=== PATIENT | male | born 1985 | race Caucasian/White ===

== ENCOUNTER 2016-11-27 11:15 | Emergency (ER) | payer BC ==
[2016-11-27 11:16] VITALS: BMI 28.8
[2016-11-27 11:28] VITALS: BP 147/71; PULSE 82; TEMP 98.6
[2016-11-27] MEDS ORDERED: Lidocaine 2%-Epinephrine 1:100,000 20ml vial INF ONE (11:32)
--- NOTE | 2016-11-27 11:32 | EDPRACDOC ---
- General Information Chief Complaint: Wound Stated Complaint: ABSCESS LT KNEE Time Seen by Provider: 11/27/16 11:28 Mode of Arrival:: Car Home Medications: Home Medications Hydrocodone Bit/Acetaminophen [Hydrocodon-Acetaminophen 5-325] 1 tab PO Q6 PRN # 15 tab 11/27/16 Sulfamethoxazole/Trimethoprim [Bactrim Ds Tablet] 1 tab PO BID #20 tab 11/27/16 Allergies/Adverse Reactions: Allergies Allergy/AdvReac Type Severity Reaction Status Date / Time No Known Allergies Allergy Verified 11/27/16 11:35 - History of Present Illness Onset: 2 days HPI: PT REPORTS PAINFUL, SWOLLEN RED AREA TO LEFT KNEE X 2-3 DAYS, NAUSEA, NO FEVER OR CHILLS, NO DRAINAGE, STATES NOTICED "RED STREAK" UP HIS LEG THIS MORNING. Location: Reports: Extremity Relevent History Of: Reports: None Prior Abscess: Reports: None Pain: Reports: Severe Quality: Reports: Painful, Red. Denies: Draining Associated Signs & Symptoms: Reports: Proximal Streaking. Denies: Chills, Fever ED Past Medical History - History Reviewed Yes Nurses notes reviewed and agree except as marked No Past Medical History: Yes Patient has no past medical history - Patient Medical History Neurological History: Denies: Seizures Cardiac History: Denies: Hypertension Respiratory History: Denies: Asthma, COPD GI/ History: Denies: Gastroesophageal Reflux, Ulcer Musculoskeletal History: Denies: Arthritis Surgical History: Reports: Cholecystectomy - Social Medical History Smoking Status: Heavy tobacco smoker (5 or more cigarettes/day or daily pipe/ cigar) EDM Review of Systems - Review of Systems Constitutional: negative: Chills, Fever Gastrointestinal: Nausea. negative: Diarrhea, Pain, Vomiting Musculoskeletal: No Symptoms Reported Integumentary: Wound - Physical Exam Constitutional: Alert (Awake), No apparent distress Oriented to: Time, Person, Place Last recorded Vital Signs: Last Vital Signs Temp 98.6 F 11/27/16 11:25 Pulse 82 11/27/16 11:25 Resp 18 11/27/16 11:25 BP 147/71 11/27/16 11:25 Pulse Ox 97 11/27/16 11:25 Oxygen Pulse Oxygen Saturation 97 O2 Device Room Air Oxygen Flow Rate Fraction of Inspired Oxygen ( FIO2) - HEENT Head: Normal ( normocephalic) - Neurologic Memory Impaired: Normal Motor Function: Normal (Normal tone, Pulses 2+ No cyanosis or edema, FROM) Cranial Nerve: Normal (CN II-X11 intact sensation, strength 5/5) Cerebellar: Normal Mood Description: Normal Perception: Normal ED Abscess/Mass Exam - Integumentary Skin: Warm Mass: Size (2 CM), Red, Tender, Warm, Firm, Pustule, Local Cellulitis Lymphatics: Normal ED Procedures - Incision and Drainage Informed of risks, benefits and alternatives described.: Yes Informed Consent Signed: Verbal Site: LEFT DISTAL THIGH Indication: Painful Mass Anesthetic: Lidocaine, with Epi Prep: Betadine Blade Size: 11 Incised Site drained: Reports: Blood, Pus Incised site was: Irrigated, Not Packed with Iodoform - Differential Diagnosis Abscess, Cellulitis Decision Time to Discharge: 11:46 - Departure Disposition: Home Condition: Stable Final Diagnosis: Abscess of left thigh Instructions: MRSA (Methicillin Resistant Staphylococcus Aureus) (ED) Education/Counseling Given To: Patient Education/Counseling Given Regarding: Diagnosis, Treatment, Prognosis, Follow Up Referrals: Patt Zhu MD [Primary Care Provider] - One Week Prescriptions: Hydrocodone Bit/Acetaminophen [Hydrocodon-Acetaminophen 5-325] 1 tab PO Q6 PRN # 15 tab PRN Reason: Pain Sulfamethoxazole/Trimethoprim [Bactrim Ds Tablet] 1 tab PO BID #20 tab Additional Instructions: Keep wound clean and dry, apply warm compresses to affected area 20 mins at a time 4 - 5 times daily, return to the ED for any worsening symptoms or concerns.
[2016-11-27] MEDS ORDERED: TRIMETHOPRIM-SULFAMETHOXAZOLE TAB PO ONE (11:33)
== END 2016-11-27 11:59 | disposition home or self-care (01) ==
LOC: ED 11:15 → EDMC 11:59
DX: L02.416 Cutaneous abscess of left lower limb (principal)
CPT/HCPCS: 10060; 99282; J3490

== ENCOUNTER 2016-11-29 10:23 | Emergency (ER) | payer BC ==
[2016-11-29 10:37] VITALS: BMI 29.7
[2016-11-29 12:29] LABS: AUTOMATED BASOPHIL 0.8 % (0-2); AUTOMATED EOSINOPHIL 1.2 % (0-5); AUTOMATED LYMPH 23.2 % (17-44); AUTOMATED MONOCYTE 5.8 % (3-10)
[2016-11-29 12:45] LABS: BLOOD UREA NITROGEN 9 MG/DL (9-20); CALC CORRECTED 9.5 MG/DL (8.4-10.2); CALCULATED OSMOLALITY 268 MOs/Kg (270-290); CHLORIDE 106 mEq/L (98-107); GLUCOSE 93 MG/DL (70-99); SODIUM LEVEL 140 mEq/L (137-146); TOTAL PROTEIN 6.1 G/DL (6.3-8.2)
--- NOTE | 2016-11-29 12:45 | EDPRACDOC ---
- General Information Chief Complaint: Wound Stated Complaint: LEFT LEG INFECTION Time Seen by Provider: 11/29/16 11:45 Information Source: Patient Mode of Arrival:: Car Home Medications: Home Medications Hydrocodone Bit/Acetaminophen [Hydrocodon-Acetaminophen 5-325] 1 tab PO Q6 PRN # 15 tab 11/27/16 Sulfamethoxazole/Trimethoprim [Bactrim Ds Tablet] 1 tab PO BID #20 tab 11/27/16 Allergies/Adverse Reactions: Allergies Allergy/AdvReac Type Severity Reaction Status Date / Time No Known Allergies Allergy Verified 11/29/16 10:37 - History of Present Illness Onset: SUN HPI: PT PRESENTS TODAY WITH SWELLING/ERYTHEMA TO LEFT LEG X 2 DAYS. PT WAS SEEN HERE 2 DAYS AGO FOR ABSCESS TO LEFT ANTERIOR THIGH. STATES WOUND WAS DRAINED AND PT SENT HOME WITH ANTIBIOTICS. HAS BEEN COMPLIANT WITH THESE MEDICATIONS, BUT HIS LEG HAS BECOME INCREASINGLY MORE SWOLLEN/RED. DENIES FEVER. MODERATE PAIN. NO OTHER S/S REPORTED. Location: Reports: Extremity Relevent History Of: Reports: None Prior Abscess: Reports: Same Pain: Reports: Moderate Quality: Reports: Draining, Painful, Red Associated Signs & Symptoms: Reports: Proximal Streaking ED Past Medical History - History Reviewed Yes Nurses notes reviewed and agree except as marked - Patient Medical History Neurological History: Denies: Seizures Cardiac History: Denies: Hypertension Respiratory History: Denies: Asthma, COPD GI/ History: Denies: Gastroesophageal Reflux, Ulcer Musculoskeletal History: Denies: Arthritis Psychological History: Denies: Depression Surgical History: Reports: Cholecystectomy - Social Medical History Smoking Status: Heavy tobacco smoker (5 or more cigarettes/day or daily pipe/ cigar) EDM Review of Systems - Review of Systems ROS Negative Except as Marked: Yes All systems reviewed and were negative except as marked Constitutional: No Symptoms Reported Respiratory: No Symptoms Reported Cardiovascular: No Symptoms Reported Gastrointestinal: No Symptoms Reported Neurological: No Symptoms Reported Musculoskeletal: Leg Integumentary: Wound - Physical Exam Constitutional: Alert (Awake), No apparent distress Oriented to: Time, Person, Place Last recorded Vital Signs: Last Vital Signs Temp 98.3 F 11/29/16 10:33 Pulse 78 11/29/16 12:08 Resp 18 11/29/16 12:08 BP 124/74 11/29/16 12:08 Pulse Ox 95 11/29/16 12:08 Oxygen Pulse Oxygen Saturation 95 O2 Device Room Air Oxygen Flow Rate Fraction of Inspired Oxygen ( FIO2) - HEENT Head: Normal Eye Exam: Normal Neck: Normal, Denies Pain, Midline - Respiratory/Cardiovascular Respiratory: Normal - CTA Cardiovascular: Normal - GI Palpation: Normal Tenderness: Non tender - Musculoskeletal Back: Normal Extremities: Other (NOTED DRAINING WOUND FROM LEFT ANTERIOR THIGH; THERE IS MODERATE, DIFFUSE SWELLING/ERYTHEMA TO ENTIRE LOWER LEG; 1+ PITTING EDEMA; SIGNIFICANTLY MORE SWOLLEN THAN RIGHT LEG; ALSO PROXIMAL STREAKING; NO NOTED LYMPHADENOPATHY) - Integumentary Skin: Normal Lymphatics: Normal - Neurologic Cerebellar: Normal Mood Description: Normal Thought: Coherent Perception: Normal ED Abscess/Mass Exam - Integumentary Skin: Normal Mass: Size (2.0), Red, Tender, Pus Drainage, Extensive Cellulitis Lymphatics: Normal - Results 11/29/16 12:06 11/29/16 12:06 - Additional Information Additional Information: CASE DISCUSSED WITH DR. HOLCOMB. PT OFFERED INPATIENT AND OUTPATIENT TREATMENT. PT OPS FOR OUTPATIENT TREATMENT TO RETURN TO OUTPATIENT CENTER FOR [facility] 2 GRAMS BID. Decision Time to Discharge: 14:11 - Departure Disposition: Home Condition: Stable Final Diagnosis: Cellulitis Qualifiers: Site of cellulitis: extremity Site of cellulitis of extremity: lower extremity Laterality: left Qualified Code(s): L03.116 - Cellulitis of left lower limb Instructions: MRSA (Methicillin Resistant Staphylococcus Aureus) (ED) Education/Counseling Given To: Patient, Family Member Education/Counseling Given Regarding: Diagnosis, Treatment, Follow Up Referrals: Patt Zhu MD [Primary Care Provider] - One Week Additional Instructions: PLEASE RETURN TO HOSPITAL TWICE DAILY FOR ANTIBIOTIC INFUSIONS. YOU DO NOT NEED TO CONTINUE THE BACTRIM ORALLY.
[2016-11-29] MEDS ORDERED: Pharmacy Review for Metformin - IV Contrast Given SCH (13:00)
[2016-11-29 13:10] VITALS: TEMP 97.9
--- NOTE | 2016-11-29 13:56 | DIRPT ---
CLINICAL DATA: Two day history of swelling and redness in the left lower extremity. Recent lancing of a skin wound. EXAM: CT OF THE LOWER LEFT EXTREMITY WITH CONTRAST TECHNIQUE: Multidetector CT imaging of the left lower extremity was performed according to the standard protocol following intravenous contrast administration. COMPARISON: None. CONTRAST: 100 cc Isovue 370 FINDINGS: Diffuse subcutaneous soft tissue swelling/ edema/ fluid beginning just above the need 1 in the anteriorly and extending all the way down into the ankle and foot. Findings suggest cellulitis. No discrete rim enhancing fluid collection to suggest a drainable abscess. No findings to suggest myofasciitis or pyomyositis. No evidence of septic arthritis or osteomyelitis. No in the or ankle joint effusion. IMPRESSION: Mild diffuse cellulitis involving the entire left lower extremity without discrete drainable soft tissue abscess. No findings for myofasciitis, pyomyositis, septic arthritis or osteomyelitis. If symptoms do not improve or worsen MRI without and with contrast is recommended for further evaluation. Electronically Signed By: Odalis Nuñez M.D. On: 11/29/2016 13:54
[2016-11-29 14:21] VITALS: BP 124/75; PULSE 77
== END 2016-11-29 14:25 | disposition home or self-care (01) ==
LOC: ED 10:23 → EDMC 14:25
DX: L03.116 Cellulitis of left lower limb (principal)
CPT/HCPCS: 36415; 73701; 80053; 83605; 85025; 87040; 96365; 99283; A9698; J3370; J7070